=== PATIENT | male | born 1960 | race Caucasian/White ===

== ENCOUNTER → 2016-08-29 | Outpatient (CLI) | payer BC ==
[~2016-08-29] MED LIST: ASMANEX HFA13 G1 INH; ASPIRIN EC81 M1 PO; FISH OIL 1,2001 EAC3 PO; FLEXERIL10 MG PO; FLOMAX0.4 M1 PO; HYDROCODONE/APA1 T16 PO; LOPRESSOR PO; NAPROXEN PO; NEXIUM PO; NORCO 7.5-3251 EACH PO; PROTONIX20 MG PO; SINGULAIR PO; VITAMIN E15 U/0.3 M PO; VOLTAREN75 MG PO; ZYRTEC PO; [UNRECOGNIZED DRUG - OTHER] PO
--- NOTE | ~2016-08-29 | MR17 ---
[facility] A Service of [facility] & [facility] RADIOLOGY TEXT RESULTS PATIENT: JEIMY ZENDEJAS LOCATION: [facility] : 64 UNIT #: [id number] AGE: [address]: Jelly Paula MD SEX: M ORDER DR: [id number] [address] [id number] MR#: [id number] Acc #: [id number] NAME: JEIMY ZENDEJAS : 1960 SEX: M STUDY DATE/TIME: 08/29/2016 15:12 UNIT: [facility] ROOM: STUDY DESCRIPTION: MR Brain WWo Contrast Attending Physician: Jelly Paula M.D. Referring Physician: Jelly Paula M.D. Ordering Physician: Jelly Paula M.D. Primary Care Physician: Jelly Paula M.D. MRI CENTER REPORT This report is preliminary unless electronic signature is present. EXAM MRI of the brain with and without contrast, 08/29/2016. COMPARISON CT head without contrast, 03/31/2016. HISTORY Constant headaches for 9 continuous days with some dizziness and blurred vision. High blood pressure. TECHNIQUE Multisequence, multiplanar imaging of the brain was obtained with and without contrast. 20 mL of MultiHance was administered intravenously. FINDINGS A few scattered nonspecific, nonenhancing, hyperintense T2 signal lesions are noted in the subcortical white matter and periventricular white matter. No acute stroke, space-occupying intracranial mass, mass effect, midline shift, or hydrocephalus. Postcontrast sequences do not demonstrate enhancing lesions. Mild S-shaped nasal septal deviation is noted. Mild paranasal sinus mucosal thickening is seen. Imaged orbits with the ocular structures and mastoids are unremarkable. Thick slices through the sella with the pituitary gland, pineal region, and upper cervical spine are within normal limits. IMPRESSION 1. No enhancing lesions, acute stroke, hemorrhage, hydrocephalus, or midline shift. 2. A few tiny nonspecific hyperintense T2 signal lesions are noted in the brain, predominantly involving the white matter. They are likely related to mild chronic vasculopathy change, such as migraine, given the history. Nonspecific. [facility] A Service of [facility] & [facility] RADIOLOGY TEXT RESULTS PATIENT: JEIMY ZENDEJAS LOCATION: [facility] : 64 UNIT #: [id number] AGE: [address]: Jelly Paula MD SEX: M ORDER DR: Dictated by... Jason Stanford M.D. THIS IS AN ELECTRONICALLY VERIFIED REPORT Jason Stanford M.D. at 08/31/2016 3:14 PM CPR/salome TD: 08/30/2016 13:01 JOB #: [id number] MRI CENTER REPORT Page 1 of 1
== END | disposition home or self-care (01) ==
LOC: SMRI 14:37
DX: R51 Headache (principal)
CPT/HCPCS: 70553; A9581